=== PATIENT | male | born 1995 | race Caucasian/White ===

== ENCOUNTER 2016-12-16 00:19 | Emergency (ER) | payer OTHER ==
[~2016-12-16] VITALS: Ht 187.9 cm; Wt 75.7 kg
[~2016-12-16 00:19] MED LIST: ANUSOL-HC25 MG R
[2016-12-17] MEDS ORDERED: Motrin,Rufen800 MG PO (23:03)
== END 2016-12-16 01:50 | disposition home or self-care (01) ==
LOC: ED 00:19
DX: M25.561 Pain in right knee (principal); F17.200 Nicotine dependence, unspecified, uncomplicated; X58.XXXA Exposure to other specified factors, initial encounter; Y93.11 Activity, swimming; Y92.89 Other specified places as the place of occurrence of the external cause; Y99.9 Unspecified external cause status

== ENCOUNTER 2016-12-17 22:46 | Emergency (ER) | payer OTHER ==
[~2016-12-17] VITALS: Ht 187.9 cm; Wt 74.8 kg
[2016-12-17] MEDS ORDERED: Motrin,Rufen800 MG PO (23:03)
== END 2016-12-17 23:40 | disposition home or self-care (01) ==
LOC: ED 22:46
DX: M25.561 Pain in right knee (principal); F17.200 Nicotine dependence, unspecified, uncomplicated

== ENCOUNTER 2017-02-27 06:08 | Emergency (ER) | payer OTHER ==
[~2017-02-27] VITALS: Wt 74.8 kg
[~2017-02-27 06:08] MED LIST changes: +Motrin,Rufen800 MG PO
[2017-02-27] MEDS ORDERED: CLINDAMYCIN150 MG PO (06:22)
== END 2017-02-27 06:34 | disposition home or self-care (01) ==
LOC: ED 06:08
DX: K02.9 Dental caries, unspecified (principal); F17.200 Nicotine dependence, unspecified, uncomplicated

== ENCOUNTER 2017-05-06 23:28 | Emergency (ER) | payer OTHER ==
[~2017-05-06] VITALS: Wt 74.8 kg
[~2017-05-06 23:28] MED LIST changes: +CLINDAMYCIN150 MG PO
[2017-05-07] MEDS ORDERED: AMOXICILLIN500 M3 PO (00:18)
== END 2017-05-07 01:06 | disposition home or self-care (01) ==
LOC: ED 23:28
DX: J03.90 Acute tonsillitis, unspecified (principal); F17.200 Nicotine dependence, unspecified, uncomplicated; Z91.030 Bee allergy status

== ENCOUNTER 2017-08-12 09:37 | Emergency (ER) | payer OTHER ==
[~2017-08-12] VITALS: Ht 187.9 cm; Wt 77.6 kg
[~2017-08-12 09:37] MED LIST changes: +AMOXICILLIN500 M3 PO
[2017-08-12] MEDS ORDERED: AUGMENTIN 875875 MG PO (10:05)
[2017-08-12] MEDS ORDERED: Motrin,Rufen800 MG PO (10:05)
== END 2017-08-12 10:25 | disposition home or self-care (01) ==
LOC: ED 09:37
DX: K08.89 Other specified disorders of teeth and supporting structures (principal); F17.200 Nicotine dependence, unspecified, uncomplicated; Z91.030 Bee allergy status

== ENCOUNTER 2017-09-21 15:59 | Emergency (ER) | payer OTHER ==
[~2017-09-21] VITALS: Ht 187.9 cm; Wt 77.6 kg
[~2017-09-21 15:59] MED LIST changes: +AUGMENTIN 875875 MG PO
[2017-09-21] MEDS ORDERED: PENICILLIN-VK500 MG PO (16:21)
[2017-09-21] MEDS ORDERED: NAPROSYN500 MG PO (16:21)
== END 2017-09-21 16:28 | disposition home or self-care (01) ==
LOC: ED 15:59
DX: K02.9 Dental caries, unspecified (principal); K08.89 Other specified disorders of teeth and supporting structures; Z91.030 Bee allergy status

== ENCOUNTER 2017-10-11 09:06 | Emergency (ER) | payer OTHER ==
[~2017-10-11] VITALS: Ht 187.9 cm; Wt 74.8 kg
[~2017-10-11 09:06] MED LIST changes: +NAPROSYN500 MG PO; +PENICILLIN-VK500 MG PO
[2017-10-11] MEDS ORDERED: AMOXICILLIN500 M2 PO (09:19)
[2017-10-11] MEDS ORDERED: NORCO 10-325 T1 EACH PO (09:23)
== END 2017-10-11 09:28 | disposition home or self-care (01) ==
LOC: ED 09:06
DX: K02.9 Dental caries, unspecified (principal); K08.89 Other specified disorders of teeth and supporting structures; F17.200 Nicotine dependence, unspecified, uncomplicated; Z91.030 Bee allergy status

== ENCOUNTER 2017-10-18 07:02 | Emergency (ER) | payer OTHER ==
[~2017-10-18] VITALS: Ht 187.9 cm; Wt 79.4 kg
[~2017-10-18 07:02] MED LIST changes: +AMOXICILLIN500 M2 PO; +NORCO 10-325 T1 EACH PO
[2017-10-18] MEDS ORDERED: CLINDAMYCIN150 MG PO (07:27)
[2017-10-18] MEDS ORDERED: KETOROLAC10 MG PO (07:37)
== END 2017-10-18 07:44 | disposition home or self-care (01) ==
LOC: ED 07:02
DX: K08.89 Other specified disorders of teeth and supporting structures (principal); Z79.899 Other long term (current) drug therapy; Z91.030 Bee allergy status